=== PATIENT | male | born 1970 | race Caucasian/White ===

== ENCOUNTER 2020-08-18 11:38 | Emergency (ER) | payer OTHER, BC ==
[2020-08-18] MEDS ORDERED: HYDROCODON-ACE1 EAC4 PO (12:52)
== END 2020-08-18 13:36 | disposition home or self-care (01) ==
LOC: ER1 11:38
DX: S43.401A Unspecified sprain of right shoulder joint, initial encounter (principal); X50.0XXA Overexertion from strenuous movement or load, initial encounter
CPT/HCPCS: 73030; 99283